=== PATIENT | female | born 1990 | race Caucasian/White ===

== ENCOUNTER 2018-12-23 06:52 | Day surgery (SDC) | payer OTHER ==
[~2018-12-23] VITALS: Ht 157.5 cm; Wt 74.8 kg
[~2018-12-23 06:52] MED LIST: IBUP800 PO; OMEP20ER; OXYACE5T PO; PROM25 PO; Percocet 5-3251 EACH PO
== END 2018-12-23 11:35 | disposition home or self-care (01) ==
LOC: ORSCSDS 06:52
PROVIDERS: Obstetrics & Gynecology
PROC: 0UT74ZZ Resection of Bilateral Fallopian Tubes, Percutaneous Endoscopic Approach (ICD-10-PCS; principal; 2018-12-23 08:15)
DX: Z30.2 Encounter for sterilization (principal); N80.3 Endometriosis of pelvic peritoneum; K66.0 Peritoneal adhesions (postprocedural) (postinfection)
CPT/HCPCS: 88302; J0171; J0690; J1100; J2250; J2405; J2704; J2765; J3010; J7120